=== PATIENT | female | born 1930 | race Caucasian/White ===

== ENCOUNTER 2016-11-13 08:52 | Emergency (ER) | payer OTHER, MEDICARE ==
[~2016-11-13] VITALS: Ht 167.6 cm; Wt 70.0 kg
[~2016-11-13 08:52] MED LIST: AMOXICILLIN500 MG PO; ATENOLOL100 MG PO; AUGMENTIN875TAB PO; BABY ASPIRIN81 MG PO; D31000 UNIT PO; DOXYCYCL HYC100 MG PO; EQL GARLIC OD1000 MG PO; FENOFIBRATE160 MG PO; FLUARIX QUADRIV1 INJ IM; FLUZONE SPLT1 M1 IM; HYDROCHLORO25 MG/TAB PO; LEVOTHYROXIN50 MC1 PO; LISINOPRIL10 MG PO; LOPID600 MG PO; LOSARTAN POT50 MG PO; PREDNISONE20 MG PO; PROAIR HFA IN; ROCEPHIN 1 GM1 GM IM; SOLU-MEDROL125 MG IM; VITAMIN D2000 UNI1 PO; ZITHROMAX250 MG PO; [UNRECOGNIZED DRUG - OTHER] OR
[2016-11-13] MEDS ORDERED: EC-NAPROSYN500 MG PO (09:53)
[2016-11-13 10:05] VITALS: BP 129/71
== END 2016-11-13 10:09 | disposition home or self-care (01) | DRG 563 ==
LOC: ED 08:52
DX: S63.602A Unspecified sprain of left thumb, initial encounter (principal); I10 Essential (primary) hypertension; S20.212A Contusion of left front wall of thorax, initial encounter; E03.9 Hypothyroidism, unspecified; V49.50XA Passenger injured in collision with unspecified motor vehicles in traffic accident, initial encounter; Z86.711 Personal history of pulmonary embolism; Z85.72 Personal history of non-Hodgkin lymphomas

== ENCOUNTER 2017-05-20 20:13 | Emergency (ER) | payer MEDICARE, OTHER ==
[~2017-05-20] VITALS: Ht 167.6 cm; Wt 65.0 kg
[~2017-05-20 20:13] MED LIST changes: +EC-NAPROSYN500 MG PO
[2017-05-20 22:19] VITALS: BP 148/60
== END 2017-05-20 22:24 | disposition home or self-care (01) ==
LOC: ED 20:13
DX: H95.42 Postprocedural hemorrhage of ear and mastoid process following other procedure (principal); Z79.01 Long term (current) use of anticoagulants

== ENCOUNTER 2018-02-23 17:19 | Emergency (ER) | payer MEDICARE, OTHER ==
[~2018-02-23] VITALS: Ht 167.6 cm; Wt 59.1 kg
[2018-02-23 20:29] LABS: URINE BILIRUBIN - DIPSTICK NEGATIVE (NEGATIVE); URINE BLOOD DIPSTICK NEGATIVE (NEGATIVE); URINE COLOR YELLOW; URINE GLUCOSE - DIPSTICK NEGATIVE (NEGATIVE); URINE KETONE TRACE mg/dL (NEGATIVE); URINE LEUK ESTERASE NEGATIVE (Negative); URINE NITRITE - DIPSTICK NEGATIVE (Negative); URINE PH 5.5 (4.5-8.0); URINE PROTEIN - DIPSTICK NEGATIVE (NEG-TRACE); URINE SPECIFIC GRAVITY 1.025; URINE UROBILINOGEN - DIPSTICK 0.2 E.U./dL (0.2)
[2018-02-23 20:30] LABS: URINE CLARITY CLEAR
[2018-02-23 20:56] VITALS: BP 130/70
== END 2018-02-23 20:56 | disposition home or self-care (01) ==
LOC: ED 17:19
PROVIDERS: Emergency Medicine
DX: J06.9 Acute upper respiratory infection, unspecified (principal); I10 Essential (primary) hypertension; Z92.21 Personal history of antineoplastic chemotherapy; Z85.9 Personal history of malignant neoplasm, unspecified

== ENCOUNTER 2018-03-29 15:26 | Inpatient (IN) | payer MEDICARE, OTHER ==
[~2018-03-29] VITALS: Ht 165.1 cm; Wt 58.0 kg
[2018-03-29 16:30] LABS: HEMATOCRIT 42.1 % (37.0-47.0); HEMOGLOBIN 13.2 g/dl (12.0-16.0); IMMATURE GRANULOCYTES 0.9 % (0.0-5.0); MEAN CELL VOLUME 84.5 fL CALC (80.0-100.0); MEAN CORPUSCULAR HGB 26.5 pG CALC (26.0-32.0); MEAN CORPUSCULAR HGB CONC 31.4 g/L CALC (32.0-36.0); NEUT# 5.82 thou/uL (2.00-7.15); RED BLOOD COUNT 4.98 mill/uL (4.20-5.60); RED CELL DISTRI WIDTH 14.7 % (11.5-15.5)
[2018-03-29 16:51] LABS: ANION GAP 18 (6-22 (CALC)); BUN 27 mg/dL (8-23); BUN/CREATININE RATIO 24 (12-20 (CALC)); CARBON DIOXIDE 23 mmol/l (22-30); CHLORIDE 101 mmol/l (95-108); CREATININE 1.2 mg/dL (0.5-1.0); GFR 42 ML/MIN (>=60 (CALC)); GFR FOR AFR.AMER. 51 ML/MIN (>=60 (CALC)); POTASSIUM 4.3 mmol/l (3.5-5.1); SODIUM 138 mmol/l (137-146)
[2018-03-29] MEDS ORDERED: WARFARIN2 MG PO (17:11)
[2018-03-29] MEDS ORDERED: LOSARTAN POTASS25 MG PO (17:11)
[2018-03-29] MEDS ORDERED: LOPID600 MG PO (17:12)
[2018-03-29] MEDS ORDERED: LEVOTHYROXIN50 MCG PO (17:12)
[2018-03-29] MEDS ORDERED: ASPIRIN 8181 MG PO (17:13)
[2018-03-29 17:55] LABS: URINE BILIRUBIN - DIPSTICK NEGATIVE (NEGATIVE); URINE BLOOD DIPSTICK NEGATIVE (NEGATIVE); URINE COLOR YELLOW; URINE GLUCOSE - DIPSTICK NEGATIVE (NEGATIVE); URINE KETONE NEGATIVE (NEGATIVE); URINE LEUK ESTERASE NEGATIVE (NEGATIVE); URINE NITRITE - DIPSTICK NEGATIVE (Negative); URINE PH 6.5 (4.5-8.0); URINE PROTEIN - DIPSTICK NEGATIVE (NEG-TRACE); URINE UROBILINOGEN - DIPSTICK 0.2 E.U./dL (0.2)
[2018-03-29 18:42] VITALS: BP 118/70
[2018-03-29 19:20] VITALS: BP 118/70
[2018-03-30 00:22] VITALS: BP 103/60
[2018-03-30 03:54] VITALS: BP 119/67
[2018-03-30 06:26] LABS: HEMATOCRIT 37.3 % (37.0-47.0); HEMOGLOBIN 11.5 g/dl (12.0-16.0); IMMATURE GRANULOCYTES 1.2 % (0.0-5.0); MEAN CELL VOLUME 86.3 fL CALC (80.0-100.0); MEAN CORPUSCULAR HGB 26.6 pG CALC (26.0-32.0); MEAN CORPUSCULAR HGB CONC 30.8 g/L CALC (32.0-36.0); NEUT# 2.94 thou/uL (2.00-7.15); RED BLOOD COUNT 4.32 mill/uL (4.20-5.60); RED CELL DISTRI WIDTH 14.8 % (11.5-15.5)
[2018-03-30 06:42] LABS: ALBUMIN 3.4 g/dL (3.2-5.0); ALKALINE PHOSPHATASE 123 u/l (38-126); AMYLASE 55 u/l (30-110); ANION GAP 15 (6-22 (CALC)); BILIRUBIN, TOTAL 0.4 mg/dL (0.0-1.4); BUN 22 mg/dL (8-23); BUN/CREATININE RATIO 22 (12-20 (CALC)); CARBON DIOXIDE 20 mmol/l (22-30); CHLORIDE 110 mmol/l (95-108); GFR 52 ML/MIN (>=60 (CALC)); GFR FOR AFR.AMER. > 60 ML/MIN (>=60 (CALC)); LIPASE 191 u/l (23-300); MAGNESIUM 1.4 mg/dL (1.6-2.3); SGOT/AST 22 u/l (9-36); SODIUM 141 mmol/l (137-146); TOTAL PROTEIN 5.5 g/dL (6.3-8.2)
[2018-03-30 08:00] VITALS: BP 159/59
[2018-03-30 08:06] LABS: INTERNATIONAL NORMALIZED RATIO 3.2 RATIO (0.7-1.3); PROTHROMBIN TIME 33.2 SECONDS (9.0-12.5)
[2018-03-30 11:59] VITALS: BP 133/53
[2018-03-30 15:59] VITALS: BP 130/51
[2018-03-30 19:47] VITALS: BP 152/67
[2018-03-31] VITALS: BP 123/63
[2018-03-31 03:53] VITALS: BP 137/61
[2018-03-31 06:08] LABS: HEMOGLOBIN 10.8 g/dl (12.0-16.0); IMMATURE GRANULOCYTES 1.2 % (0.0-5.0); MEAN CELL VOLUME 85.4 fL CALC (80.0-100.0); MEAN CORPUSCULAR HGB 26.3 pG CALC (26.0-32.0); MEAN CORPUSCULAR HGB CONC 30.9 g/L CALC (32.0-36.0); NEUT# 3.93 thou/uL (2.00-7.15); RED BLOOD COUNT 4.1 mill/uL (4.20-5.60); RED CELL DISTRI WIDTH 14.8 % (11.5-15.5)
[2018-03-31 06:32] LABS: ALBUMIN 3.2 g/dL (3.2-5.0); ALKALINE PHOSPHATASE 100 u/l (38-126); AMYLASE < 30 u/l (30-110); ANION GAP 14 (6-22 (CALC)); BILIRUBIN, TOTAL 0.3 mg/dL (0.0-1.4); BUN 15 mg/dL (8-23); BUN/CREATININE RATIO 19 (12-20 (CALC)); CARBON DIOXIDE 19 mmol/l (22-30); CHLORIDE 112 mmol/l (95-108); CREATININE 0.8 mg/dL (0.5-1.0); GFR > 60 ML/MIN (>=60 (CALC)); GFR FOR AFR.AMER. > 60 ML/MIN (>=60 (CALC)); LIPASE 78 u/l (23-300); MAGNESIUM 2.7 mg/dL (1.6-2.3); POTASSIUM 4.2 mmol/l (3.5-5.1); SGOT/AST 24 u/l (9-36); SODIUM 142 mmol/l (137-146); TOTAL PROTEIN 5.3 g/dL (6.3-8.2)
[2018-03-31 06:48] LABS: INTERNATIONAL NORMALIZED RATIO 1.7 RATIO (0.7-1.3); PROTHROMBIN TIME 18.2 SECONDS (9.0-12.5)
[2018-03-31 09:18] VITALS: BP 131/54
[2018-03-31 11:20] VITALS: BP 134/60
[2018-03-31 15:55] VITALS: BP 149/77
[2018-03-31 19:05] VITALS: BP 154/77
[2018-04-01 00:02] VITALS: BP 148/80
[2018-04-01 04:00] VITALS: BP 146/80
[2018-04-01 05:31] LABS: HEMATOCRIT 36.6 % (37.0-47.0); HEMOGLOBIN 11.5 g/dl (12.0-16.0); MEAN CELL VOLUME 85.3 fL CALC (80.0-100.0); MEAN CORPUSCULAR HGB 26.8 pG CALC (26.0-32.0); MEAN CORPUSCULAR HGB CONC 31.4 g/L CALC (32.0-36.0); NEUT# 4.12 thou/uL (2.00-7.15); RED BLOOD COUNT 4.29 mill/uL (4.20-5.60); RED CELL DISTRI WIDTH 14.9 % (11.5-15.5)
[2018-04-01 05:44] LABS: ALBUMIN 3.4 g/dL (3.2-5.0); ALKALINE PHOSPHATASE 113 u/l (38-126); ANION GAP 14 (6-22 (CALC)); BILIRUBIN, TOTAL 0.3 mg/dL (0.0-1.4); BUN 14 mg/dL (8-23); BUN/CREATININE RATIO 16 (12-20 (CALC)); CARBON DIOXIDE 21 mmol/l (22-30); CHLORIDE 110 mmol/l (95-108); CREATININE 0.8 mg/dL (0.5-1.0); GFR > 60 ML/MIN (>=60 (CALC)); GFR FOR AFR.AMER. > 60 ML/MIN (>=60 (CALC)); POTASSIUM 3.9 mmol/l (3.5-5.1); SGOT/AST 24 u/l (9-36); SODIUM 141 mmol/l (137-146); TOTAL PROTEIN 5.4 g/dL (6.3-8.2)
[2018-04-01 05:45] LABS: MAGNESIUM 1.8 mg/dL (1.6-2.3)
[2018-04-01 08:42] VITALS: BP 158/69
[2018-04-01 11:50] VITALS: BP 147/68
[2018-04-01 15:14] VITALS: BP 154/68
[2018-04-01 19:12] VITALS: BP 147/75
[2018-04-02 00:01] VITALS: BP 141/79
[2018-04-02 04:09] VITALS: BP 141/81
[2018-04-02 05:41] LABS: HEMATOCRIT 39.7 % (37.0-47.0); HEMOGLOBIN 12.3 g/dl (12.0-16.0); IMMATURE GRANULOCYTES 3.4 % (0.0-5.0); MEAN CELL VOLUME 84.5 fL CALC (80.0-100.0); MEAN CORPUSCULAR HGB 26.2 pG CALC (26.0-32.0); NEUT# 3.95 thou/uL (2.00-7.15); RED BLOOD COUNT 4.7 mill/uL (4.20-5.60); RED CELL DISTRI WIDTH 14.7 % (11.5-15.5)
[2018-04-02 06:02] LABS: ALBUMIN 3.6 g/dL (3.2-5.0); ALKALINE PHOSPHATASE 99 u/l (38-126); ANION GAP 16 (6-22 (CALC)); BILIRUBIN, TOTAL 0.4 mg/dL (0.0-1.4); CARBON DIOXIDE 23 mmol/l (22-30); CHLORIDE 106 mmol/l (95-108); CREATININE 0.9 mg/dL (0.5-1.0); GFR 59 ML/MIN (>=60 (CALC)); GFR FOR AFR.AMER. > 60 ML/MIN (>=60 (CALC)); MAGNESIUM 1.5 mg/dL (1.6-2.3); POTASSIUM 3.9 mmol/l (3.5-5.1); SODIUM 141 mmol/l (137-146); TOTAL PROTEIN 5.7 g/dL (6.3-8.2)
[2018-04-02 06:03] LABS: SGOT/AST 24 u/l (9-36)
[2018-04-02 06:07] LABS: BUN 15 mg/dL (8-23); BUN/CREATININE RATIO 17 (12-20 (CALC))
[2018-04-02 08:17] VITALS: BP 147/68
[2018-04-02 09:44] LABS: PROTHROMBIN TIME 12.9 SECONDS (9.0-12.5)
[2018-04-02 10:00] LABS: INTERNATIONAL NORMALIZED RATIO 1.2 RATIO (0.7-1.3)
[2018-04-02 11:14] VITALS: BP 128/71
[2018-04-02 16:46] VITALS: BP 139/74
[2018-04-02 20:00] VITALS: BP 152/78
[2018-04-03] VITALS: BP 132/79
[2018-04-03 05:44] VITALS: BP 166/74
[2018-04-03 06:24] VITALS: BP 139/65
[2018-04-03 07:52] VITALS: BP 165/77
[2018-04-03 09:52] LABS: INTERNATIONAL NORMALIZED RATIO 1.3 RATIO (0.7-1.3); PROTHROMBIN TIME 13.2 SECONDS (9.0-12.5)
[2018-04-03 11:58] VITALS: BP 174/83
[2018-04-03] MEDS ORDERED: DOXYCYCL HYC100 MG PO (13:15)
[2018-04-03] MEDS ORDERED: LOSARTAN POT50 MG PO (13:16)
== END 2018-04-03 13:39 | disposition home or self-care (01) | DRG 195 ==
LOC: ED 15:26 → ED-I 17:23 → ED 17:37 → MS2 17:38
PROVIDERS: Family Medicine; Nurse Practitioner Family; ADMIT Internal Medicine Nephrology; ATTEND Internal Medicine Nephrology
PROC: 3E0234Z Introduction of Serum, Toxoid and Vaccine into Muscle, Percutaneous Approach (ICD-10-PCS; principal; 2018-03-30)
DX: J18.9 Pneumonia, unspecified organism (principal); I12.9 Hypertensive chronic kidney disease with stage 1 through stage 4 chronic kidney disease, or unspecified chronic kidney disease; N18.3 Chronic kidney disease, stage 3 (moderate); E03.9 Hypothyroidism, unspecified; R79.1 Abnormal coagulation profile; T45.515A Adverse effect of anticoagulants, initial encounter; Z23 Encounter for immunization; Z79.01 Long term (current) use of anticoagulants; Z86.711 Personal history of pulmonary embolism; Z85.72 Personal history of non-Hodgkin lymphomas; Z92.21 Personal history of antineoplastic chemotherapy
CPT/HCPCS: G0378

== ENCOUNTER → 2018-04-11 | Outpatient (REF) | payer MEDICARE, OTHER ==
[~2018-04-11] MED LIST changes: +ASPIRIN 8181 MG PO; +LEVOTHYROXIN50 MCG PO; +LOSARTAN POTASS25 MG PO; +WARFARIN2 MG PO
== END | disposition home or self-care (01) ==
LOC: DI 12:44
PROVIDERS: ATTEND Nurse Practitioner Family
DX: J18.9 Pneumonia, unspecified organism (principal); R05 Cough; J47.9 Bronchiectasis, uncomplicated

== ENCOUNTER → 2018-05-01 | Outpatient (REF) | payer MEDICARE, OTHER ==
[2018-05-01 15:48] LABS: HEMOGLOBIN 12.8 g/dl (12.0-16.0); IMMATURE GRANULOCYTES 0.5 % (0.0-5.0); MEAN CELL VOLUME 83.2 fL CALC (80.0-100.0); MEAN CORPUSCULAR HGB CONC 31.2 g/L CALC (32.0-36.0); NEUT# 11.58 thou/uL (2.00-7.15); RED BLOOD COUNT 4.93 mill/uL (4.20-5.60); RED CELL DISTRI WIDTH 16.7 % (11.5-15.5)
== END | disposition home or self-care (01) ==
LOC: LAB 15:25
PROVIDERS: ATTEND Internal Medicine Hematology
DX: C91.10 Chronic lymphocytic leukemia of B-cell type not having achieved remission (principal)

== ENCOUNTER → 2018-05-08 | Outpatient (REF) | payer MEDICARE, OTHER ==
[2018-05-08 17:27] LABS: HEMATOCRIT 44.7 % (37.0-47.0); HEMOGLOBIN 13.9 g/dl (12.0-16.0); IMMATURE GRANULOCYTES 0.6 % (0.0-5.0); MEAN CELL VOLUME 82.9 fL CALC (80.0-100.0); MEAN CORPUSCULAR HGB 25.8 pG CALC (26.0-32.0); MEAN CORPUSCULAR HGB CONC 31.1 g/L CALC (32.0-36.0); NEUT# 12.92 thou/uL (2.00-7.15); RED BLOOD COUNT 5.39 mill/uL (4.20-5.60); RED CELL DISTRI WIDTH 17.1 % (11.5-15.5)
== END | disposition home or self-care (01) ==
LOC: LAB 15:34
PROVIDERS: ATTEND Internal Medicine Hematology
DX: C91.10 Chronic lymphocytic leukemia of B-cell type not having achieved remission (principal); Z85.038 Personal history of other malignant neoplasm of large intestine; R59.9 Enlarged lymph nodes, unspecified; D70.1 Agranulocytosis secondary to cancer chemotherapy; R50.9 Fever, unspecified; I26.99 Other pulmonary embolism without acute cor pulmonale

== ENCOUNTER → 2018-05-14 | Outpatient (REF) | payer MEDICARE, OTHER | END | disposition home or self-care (01) | LOC: DI 15:46 | PROVIDERS: ATTEND Internal Medicine Pulmonary Disease | DX: J42 Unspecified chronic bronchitis (principal) ==

== ENCOUNTER → 2018-05-15 | Outpatient (REF) | payer MEDICARE, OTHER ==
[2018-05-15 17:32] LABS: HEMATOCRIT 44.8 % (37.0-47.0); HEMOGLOBIN 13.7 g/dl (12.0-16.0); IMMATURE GRANULOCYTES 0.6 % (0.0-5.0); MEAN CELL VOLUME 82.7 fL CALC (80.0-100.0); MEAN CORPUSCULAR HGB 25.3 pG CALC (26.0-32.0); MEAN CORPUSCULAR HGB CONC 30.6 g/L CALC (32.0-36.0); NEUT# 13.68 thou/uL (2.00-7.15); RED BLOOD COUNT 5.42 mill/uL (4.20-5.60); RED CELL DISTRI WIDTH 17.3 % (11.5-15.5)
[2018-05-15 17:56] LABS: ALBUMIN 4.1 g/dL (3.2-5.0); BILIRUBIN, TOTAL 0.6 mg/dL (0.0-1.4); CREATININE 1.2 mg/dL (0.5-1.0); POTASSIUM 4.5 mmol/l (3.5-5.1); TOTAL PROTEIN 6.5 g/dL (6.3-8.2)
== END | disposition home or self-care (01) ==
LOC: LAB 15:31
PROVIDERS: ATTEND Internal Medicine Hematology
DX: C91.10 Chronic lymphocytic leukemia of B-cell type not having achieved remission (principal); Z85.038 Personal history of other malignant neoplasm of large intestine; R59.9 Enlarged lymph nodes, unspecified; D70.1 Agranulocytosis secondary to cancer chemotherapy; R50.9 Fever, unspecified; I26.99 Other pulmonary embolism without acute cor pulmonale; E87.5 Hyperkalemia

== ENCOUNTER 2019-05-29 15:39 | Inpatient (IN) | payer MEDICARE, OTHER ==
[~2019-05-29] VITALS: Ht 165.1 cm; Wt 56.0 kg
[~2019-05-29 15:39] MED LIST changes: +BUDESONID2 IN; +MINOCIN100 MG PO; +VITAMIN B121000 MCG PO
--- NOTE | 2019-05-29 15:39 | NUR ---
PT TO ROOM VIA WC IN NO ACUTE DISTRESS
--- NOTE | 2019-05-29 16:20 | NUR ---
ALL LABS DRAWN, SWABS COLLECTED AND PT UPDATED ON POC AND WAIT TIME.PT IN NO DISTRESS
[2019-05-29] MEDS ORDERED: GARLIC1000 MG PO (16:50)
[2019-05-29] MEDS ORDERED: MULTI VIT PO (16:51)
--- NOTE | 2019-05-29 17:01 | NUR ---
PT RESTING NO ACUTE DITRESSNOTED, IV ACCESS OBTAINED AND LABS DRAWN, PT RESTING ,CALL JOVEL WITHIN REACH.
--- NOTE | 2019-05-29 17:08 | NUR ---
LACTIC ACID DRAWN WITHOUT INCIDENT ORDERED, PT TOLERATED WELL.
[2019-05-29 17:21] LABS: HEMATOCRIT 43.3 % (37.0-47.0); HEMOGLOBIN 13.7 g/dl (12.0-16.0); IMMATURE GRANULOCYTES 0.5 % (0.0-5.0); MEAN CELL VOLUME 89.8 fL CALC (80.0-100.0); MEAN CORPUSCULAR HGB 28.4 pG CALC (26.0-32.0); MEAN CORPUSCULAR HGB CONC 31.6 g/dL CAL (32.0-36.0); NEUT# 12.02 thou/uL (2.00-7.15); RED BLOOD COUNT 4.82 mill/uL (4.20-5.60); RED CELL DISTRI WIDTH 14.1 % (11.5-15.5); URINE BILIRUBIN - DIPSTICK NEGATIVE (NEGATIVE); URINE BLOOD DIPSTICK LARGE (NEGATIVE); URINE COLOR YELLOW; URINE GLUCOSE - DIPSTICK NEGATIVE (NEGATIVE); URINE KETONE NEGATIVE (NEGATIVE); URINE LEUK ESTERASE TRACE (NEGATIVE); URINE NITRITE - DIPSTICK NEGATIVE (Negative); URINE PROTEIN - DIPSTICK 100 mg/dL (NEG-TRACE); URINE SPECIFIC GRAVITY 1.025; URINE UROBILINOGEN - DIPSTICK 0.2 E.U./dL (0.2)
[2019-05-29 17:35] LABS: URINE RBC 25-50 RBC/hpf (0-5); URINE SQUAMOUS EPITHELIAL CELL FEW EPI/hpf (0-FEW)
[2019-05-29 17:36] LABS: ALBUMIN 4.3 g/dL (3.2-5.0); ALKALINE PHOSPHATASE 219 u/l (38-126); ANION GAP 16 (6-22 (CALC)); BILIRUBIN, TOTAL 0.7 mg/dL (0.0-1.4); BUN 24 mg/dL (8-23); BUN/CREATININE RATIO 23 (12-20 (CALC)); CARBON DIOXIDE 25 mmol/l (22-30); CHLORIDE 99 mmol/l (95-108); GFR 52 ML/MIN (>=60 (CALC)); GFR FOR AFR.AMER. > 60 ML/MIN (>=60 (CALC)); INTERNATIONAL NORMALIZED RATIO 3.9 RATIO (0.7-1.3); POTASSIUM 4.4 mmol/l (3.5-5.1); PROTHROMBIN TIME 38.4 SECONDS (9.0-12.5); SGOT/AST 28 u/l (9-36); SODIUM 136 mmol/l (137-146)
--- NOTE | 2019-05-29 17:46 | NUR ---
MEDICATED FOR FEVER ORDERED, CALL BECKA BECK, RT AT BEDSIDE ATTEMPTINGABG DRAW, WILL CONTINUETOMONITOR,.
--- NOTE | 2019-05-29 17:56 | NUR ---
ABG RESULTS PROVIDED TO
[2019-05-29 17:57] LABS: MYOGLOBIN 63 ng/mL (0 - 62)
--- NOTE | 2019-05-29 18:43 | NUR ---
REPORT CALLED TO XANDER FRANKLIN. PT AWARE OF PLANNED ADMISSION
[2019-05-29 19:25] VITALS: BP 121/52
--- NOTE | 2019-05-29 19:25 | NUR ---
PT TRANSPORTED TO MED SURG STABLE AND IN NO DISTRESS TO MED SURG VIA STRETCHER. CARE ASSUMED TO XANDER Admission Note Report Given to: Transported by: Wheelchair X Stretcher Transported with: X Nurse Transporter X Patent IV O2 X Enterprise Integration Developer Location: ICU X MS2
--- NOTE | 2019-05-29 19:25 | NUR ---
PT ARRIVED TO FLOOR VIA STRETCHER ACCOMPAINED BY ER STAFF. PT ALERT AND ORIENTED. PT AMBULATED FROM STRETCHER TO BED WITH STEADY GAIT. IV SITE NOTED TO LAC APPEARS HEALTHY. SKIN INTACT. AREA COORDINATOR IN PLACE. DISCUSSED POC AND ISOLATION PRECAUTIONS. PT VERBALIZED UNDERSTANDING. PT ORIENTED TO ROOM AND CALL LIGHT SYSTEM. PT DENIES ANY PAIN OR DISCOMFORT. CALL LIGHT WITHIN REACH. WILL CONTINUE TO MONITOR.
--- NOTE | 2019-05-29 23:28 | NUR ---
PT RESTING IN BED. NO APPARENT DISTRESS NOTED. PT DENIES ANY PAIN OR DISCOMFORT. CALL LIGHT WITHIN REACH. WILL CONTINUE TO MONITOR.
[2019-05-30] VITALS (7 sets, daily range): BP systolic 112–167; BP diastolic 50–74
--- NOTE | 2019-05-30 03:22 | NUR ---
PT CALLED ROCK PICKER REPORTING CHILLS. TEMT NOTED 101.6. PT MEDICATED WITH PO APAP. ASSISTED PT TO BATHROOM. PT VOIDED WITHOUT DIFFICULTY. UPON GETTING BACK INTO BED PT IV SITE BECAME DISLODGED CATH INTACT. NEW IV START X1 ATTEMPT, PT TOLERATED WELL. LINENS CHANGED AT THIS TIME. CALL LIGHT WITHIN REACH. WILL CONTINUE TO MONITOR.
[2019-05-30 06:40] LABS: ANION GAP 10 (6-22 (CALC)); BUN 19 mg/dL (8-23); BUN/CREATININE RATIO 22 (12-20 (CALC)); CARBON DIOXIDE 24 mmol/l (22-30); CHLORIDE 105 mmol/l (95-108); CREATININE 0.9 mg/dL (0.5-1.0); GFR 59 ML/MIN (>=60 (CALC)); GFR FOR AFR.AMER. > 60 ML/MIN (>=60 (CALC)); POTASSIUM 3.7 mmol/l (3.5-5.1); SODIUM 136 mmol/l (137-146)
--- NOTE | 2019-05-30 08:10 | NUR ---
REPORT RECEIVED FROM RIGOBERTO TERRELL. PT SITTING UP IN BED; ALERT AND ORIENTED. DENIES PAIN. RESPIRATIONS EVEN AND UNLABORED ON ROOM AIR. AMBULATED TO BATHROOM INDEPENDENTLY WITH SUPERVISION. TELE ON. IV FLUIDS INFUSING WITHOUT DIFFICULTY; IV SITE APPEARS HEALTHY. PLAN OF CARE REVIEWED. PT ENCOURAGED TO VERBALIZE CONCERNS. STATES UNDERSTANDING. SAFETY MEASURES IN PLACE. CALL LIGHT WITHIN REACH.
[2019-05-30 08:13] LABS: INTERNATIONAL NORMALIZED RATIO 2.6 RATIO (0.7-1.3); PROTHROMBIN TIME 26.4 SECONDS (9.0-12.5)
[2019-05-30 08:18] LABS: HEMATOCRIT 36.4 % (37.0-47.0); HEMOGLOBIN 11.6 g/dl (12.0-16.0); IMMATURE GRANULOCYTES 0.6 % (0.0-5.0); MEAN CELL VOLUME 89.2 fL CALC (80.0-100.0); MEAN CORPUSCULAR HGB 28.4 pG CALC (26.0-32.0); MEAN CORPUSCULAR HGB CONC 31.9 g/dL CAL (32.0-36.0); NEUT# 8.29 thou/uL (2.00-7.15); RED BLOOD COUNT 4.08 mill/uL (4.20-5.60)
--- NOTE | 2019-05-30 10:40 | NUR ---
INSENTIVE SPIROMETER PROVIDED AND EDUCATED ON; DEMONSTRATED USE OVER 1000.
--- NOTE | 2019-05-30 11:54 | NUR ---
DR. LUCIA AT BEDSIDE.
--- NOTE | 2019-05-30 12:45 | NUR ---
PT IS RELAXING IN BED WITH NO DISTRESS NOTED. IV SITE IS FREE FROM REDNESS TELE MONITOR IN PLACE.
--- NOTE | 2019-05-30 13:10 | NUR ---
TYLENOL GIVEN FOR C/O MILD HEADACHE AND LEFT SIDE ACHE. SITTING UP WATCHING TV; ALERT AND ORIENTED.
--- NOTE | 2019-05-30 15:43 | NUR ---
PT HAS BEEN RESTING WITH EYES CLOSED.
--- NOTE | 2019-05-30 16:45 | NUR ---
PT IS SITTING IN BED WATCHING TV NO DISTRESS NOTED. IV SITE IS FREE FROM REDNESS OR EDEMA.
--- NOTE | 2019-05-30 19:05 | NUR ---
REPORT FROM TERI FRANKLIN. PT SITTING UP IN BED WATCHING TV. NO APPARENT DISTRESS NOTED. PT DENIES ANY PAIN OR DISCOMFORT. IV SITE APPEARS HEALTHY WITH IVF INFUSING. SENIOR DATA MINING ANALYST IN PLACE. DISCUSSED POC. PT VERBALIZED UNDERSTANDING. CALL LIGHT WITHIN REACH. WILL CONTINUE TO MONITOR.
--- NOTE | 2019-05-30 20:56 | NUR ---
PT CALLED INPATIENT SERVICES DIRECTOR TO ROOM C/O LLQ PAIN. PT REQUESTING APAP AT THIS TIME. ADMINISTERED UPON REQUEST. ACTIVE BOWEL SOUNDS NOTED. PT PASSING GAS AND BELCHING WITNESSED BY INPATIENT SERVICES DIRECTOR IN ROOM. ASSISTED PT TO BATHROOM TO VOID. CLEAR YELLOW URINED NOTED. PT DENIES ANY OTHER PAIN OR DISCOMFORT. AFEBRILE AT THIS TIME. ASSISTED BACK TO BED. OTHER SCHEDULED MEDICAITONS ADMINISTERED AT THIS TIME. PT DENIES ANY OTHER WANTS OR NEEDS. CALL LIGHT WITHIN REACH. WILL CONTINUE TO MONITOR.
--- NOTE | 2019-05-31 00:04 | NUR ---
PT RESTING IN BED WITH EYES CLOSED. NO APPARENT DISTRESS NOTED. IVF INFUSING WITHOUT DIFFICULTY. CALL LIGHT WITHIN REACH. WILL CONTINUE TO MONITOR.
--- NOTE | 2019-05-31 04:00 | NUR ---
PT RESTING IN BED. WAKES EASILY. DENIES ANY PAIN OR DISCOMFORT. CALL LIGHT WITHIN REACH. WILL CONTINUE TO MONITOR.
[2019-05-31 04:40] VITALS: BP 115/68
--- NOTE | 2019-05-31 06:23 | NUR ---
VEST BUSHELER IN ROOM TO ADMINISTER MORNING MEDICATIONS. PT STATES SHE IS STILL HAVING CP. WHEN VEST BUSHELER QUESTIONED WHEN CP STARTED PT STATES 3 DAYS AGO. PT STATES CP COMES AND GO AND SHE DIDN'T SAY ANYTHING EARLIER ABOUT IT BECAUSE SHE WAS HOPING IT WOULD JUST GO AWAY, PT ALSO STATES SHE HAD BEEN TAKING APAP AT HOME FOR IT PRIOR TO ADMISSION. PT EDUCATED ON INFORMING AND REPORTING TO NURSE WHEN PAIN ARRISES. PT VERBALIZED UNDERSTANDING. STAT EKG ORDERED AT THIS TIME.
[2019-05-31 07:45] VITALS: BP 117/64
--- NOTE | 2019-05-31 07:45 | NUR ---
REPORT RECEIVED FROM RIGOBERTO TERRELL. PT RESTING IN BED ON RIGHT SIDE; AWAKENS SPONTANEOUSLY AND IN NO DISTRESS. REMAINS ON ISOLATION PRECAUTIONS PENDING COVID TEST RESULTS. DENIES PAIN CHEST PAIN AT THIS TIME. RESPIRATIONS EVEN AND UNLABORED ON ROOM AIR. SAFETY MEASURES IN PLACE. CALL LIGHT WITHIN REACH.
--- NOTE | 2019-05-31 07:49 | NUR ---
PT DENIES CHEST PAIN AT TIME STATING THAT IT WENT AWAY. STATES, "IF I LAY ON MY SIDE IT WILL PROBABLY COME BACK, HOLD ON ILL CHECK." [place] GIVEN WITH AM MEDS. VSS. TEMP 99.7. LABS OBTAINED AND SENT.
[2019-05-31 08:16] LABS: HEMOGLOBIN 13.5 g/dl (12.0-16.0); IMMATURE GRANULOCYTES 0.9 % (0.0-5.0); MEAN CELL VOLUME 88.9 fL CALC (80.0-100.0); MEAN CORPUSCULAR HGB 28.2 pG CALC (26.0-32.0); MEAN CORPUSCULAR HGB CONC 31.7 g/dL CAL (32.0-36.0); NEUT# 6.34 thou/uL (2.00-7.15); RED BLOOD COUNT 4.79 mill/uL (4.20-5.60)
[2019-05-31 08:33] LABS: INTERNATIONAL NORMALIZED RATIO 1.9 RATIO (0.7-1.3); PROTHROMBIN TIME 19.1 SECONDS (9.0-12.5)
[2019-05-31 08:34] LABS: ALBUMIN 3.6 g/dL (3.2-5.0); ALKALINE PHOSPHATASE 137 u/l (38-126); ANION GAP 15 (6-22 (CALC)); BILIRUBIN, TOTAL 0.5 mg/dL (0.0-1.4); BUN 14 mg/dL (8-23); BUN/CREATININE RATIO 15 (12-20 (CALC)); CARBON DIOXIDE 22 mmol/l (22-30); CHLORIDE 103 mmol/l (95-108); CREATININE 0.9 mg/dL (0.5-1.0); GFR 59 ML/MIN (>=60 (CALC)); GFR FOR AFR.AMER. > 60 ML/MIN (>=60 (CALC)); POTASSIUM 3.9 mmol/l (3.5-5.1); SGOT/AST 41 u/l (9-36); SODIUM 136 mmol/l (137-146)
[2019-05-31 08:42] LABS: HEMATOCRIT 42.6 % (37.0-47.0)
--- NOTE | 2019-05-31 08:57 | NUR ---
TROPONIN RESULT 1.670; CALLED TO DR. KASPER AND UPDATED ON CLINICAL CONDITION. NEW ORDER TO DRAW ANOTHER TROPONIN IN 4 HOURS. TYLENOL GIVEN FOR LEFT SIDE PAIN. WILL CONTINUE TO CLOSELY MONITOR.
--- NOTE | 2019-05-31 10:01 | NUR ---
COVID TEST RESULTS ARE NEGATIVE.
--- NOTE | 2019-05-31 10:40 | NUR ---
PT SITTING UP IN BEDSIDE CHAIR; PLEASANT AND SMILING. C/O MILD MIDSTERNAL CP; STATES, "IT'S OK ITS NOT THAT BAD." HEART RATE ELEVATED; ST 108 ON TELEMETRY.
[2019-05-31 11:14] VITALS: BP 106/59
--- NOTE | 2019-05-31 11:45 | NUR ---
TROPONIN COLLECTED AND SENT TO LAB.
--- NOTE | 2019-05-31 12:31 | NUR ---
TROPONIN RESULT 1.500; DR. KASPER ON UNIT AND NOTIFIED.
--- NOTE | 2019-05-31 14:02 | NUR ---
DR. KASPER AT BEDSIDE.
--- NOTE | 2019-05-31 14:32 | NUR ---
PT TRANSPORTED FROM ROOM 290 TO 270 VIA BED; NOW ON STANDARD PRECAUTIONS.
--- NOTE | 2019-05-31 15:13 | NUR ---
TYLENOL GIVEN FOR 8/10 LEFT SIDE PAIN.
[2019-05-31 15:15] VITALS: BP 111/71
--- NOTE | 2019-05-31 17:14 | NUR ---
PT AMBULATING AROUND BED; NO COMPLAINTS AT THIS TIME; SMILING AND PLESANT; TYLENOL EFFECTIVE FOR LEFT SIDE PAIN; DENIES PAIN AT THIS TIME. COUMADIN RESTARTED AND ADMINISTERED. SAFETY MEASURES IN PLACE. CALL LIGHT WITHIN REACH.
--- NOTE | 2019-05-31 19:05 | NUR ---
REPORT FROM PRINCE ABURTO. PT SITTING UP IN BED. ALERT AND ORIENTED. PT DENIES ANY PAIN OR DISCOMFORT AT THIS TIME. NO APPARENT DISTRESS NOTED. IV SITE APPEARS HEALTHY WITH IVF INFUSING. AUTOMOTIVE MACHINIST APPRENTICE IN PLACE. DISCUSSED POC. PT VERBALIZED UNDERSTANDING. CALL LIGHT WITHIN REACH. WILL CONTINUE TO MONITOR.
[2019-05-31 19:10] VITALS: BP 100/63
--- NOTE | 2019-05-31 23:38 | NUR ---
PT RESTING IN BED WITH EYES CLOSED. NO APPARENT DISTRESS NOTED. CALL LIGHT WITHIN REACH. WILL CONTINUE TO MONITOR.
[2019-06-01] VITALS (8 sets, daily range): BP systolic 101–122; BP diastolic 55–76
--- NOTE | 2019-06-01 03:32 | NUR ---
PT RESTING IN BED WITH EYES CLOSED. NO APPARENT DISTRESS NOTED. CALL LIGHT WITHIN REACH. WILL CONTINUE TO MONITOR.
[2019-06-01 05:07] LABS: HEMATOCRIT 40.4 % (37.0-47.0); HEMOGLOBIN 12.6 g/dl (12.0-16.0); MEAN CELL VOLUME 90.4 fL CALC (80.0-100.0); MEAN CORPUSCULAR HGB 28.2 pG CALC (26.0-32.0); MEAN CORPUSCULAR HGB CONC 31.2 g/dL CAL (32.0-36.0); RED BLOOD COUNT 4.47 mill/uL (4.20-5.60); RED CELL DISTRI WIDTH 14.2 % (11.5-15.5)
[2019-06-01 05:09] LABS: ALKALINE PHOSPHATASE 100 u/l (38-126); ANION GAP 12 (6-22 (CALC)); BILIRUBIN, TOTAL 0.3 mg/dL (0.0-1.4); BUN 15 mg/dL (8-23); BUN/CREATININE RATIO 15 (12-20 (CALC)); CARBON DIOXIDE 21 mmol/l (22-30); CHLORIDE 106 mmol/l (95-108); GFR 52 ML/MIN (>=60 (CALC)); GFR FOR AFR.AMER. > 60 ML/MIN (>=60 (CALC)); POTASSIUM 3.2 mmol/l (3.5-5.1); SGOT/AST 40 u/l (9-36); SODIUM 136 mmol/l (137-146); TOTAL PROTEIN 5.2 g/dL (6.3-8.2)
[2019-06-01 05:10] LABS: INTERNATIONAL NORMALIZED RATIO 1.9 RATIO (0.7-1.3); PROTHROMBIN TIME 19.4 SECONDS (9.0-12.5)
--- NOTE | 2019-06-01 07:51 | NUR ---
ENTERPRISE BUSINESS ARCHITECT NOTIFIED NURSE OF RHYTHM CHANGE INCLUDING FREQUENT PVCS AND TRIGEMINY. RT AT BEDSIDE FOR EKG.
--- NOTE | 2019-06-01 08:58 | NUR ---
TROPONIN DRAWN WITH RESULT OF 0.767; SAL TAVAREZ ON UNIT AND NOTIFIED.
--- NOTE | 2019-06-01 09:00 | NUR ---
PT SEEN AWAKE, ALERT, ORIENTED X 3. LUNGS CLEAR, RA. PT WITH MUSCULAR PAIN TO MIDBACK BILATERALLY, WORSE TO LEFT, HELPED WITH MASSAGE. PT DENIES SHORTNESS OF BREATH OR CHEST PAIN. EKG DONE EARLIER, TROPONIN DRAWN, TRENDING DOWNWARD, FREDEIRC AWARE.
--- NOTE | 2019-06-01 13:13 | NUR ---
PT REMAINS BEFORE, NO DISTRESS, NO COMPLAINTS.
[2019-06-01 19:01] LABS: MAGNESIUM 2.5 mg/dL (1.6-2.3); POTASSIUM 3.9 mmol/l (3.5-5.1)
--- NOTE | 2019-06-01 19:18 | NUR ---
REPORT FROM GREG ABURTO. PT SITTING UP IN BED. ALERT AND ORIENTED. PT DENIES ANY PAIN OR DISCOMFORT AT THIS TIME. NO APPARENT DISTRESS NOTED. IV SITE APPEARS HEALTHY WITH IVF INFUSING. TOE SEWER IN PLACE. DISCUSSED POC. PT VERBALIZED UNDERSTANDING. CALL LIGHT WITHIN REACH. WILL CONTINUE TO MONITOR.
--- NOTE | 2019-06-01 23:16 | NUR ---
PT SITTING UP IN BED. NO APPARENT DISTRESS NOTED. PT REQUESTING TYLENOL, PT DENIES ANY PAIN AND REMAINS AFEBRILE. EDUCATION PROVIDED AND DISCUSSED USE OF TYLENOL. ENCOURAGED PT TO REPORT PAIN AND PT WOULD BE MEDICATED AT THAT TIME. PT VERBALIZED CONCERNS ABOUT STAFF NOT BEING AVAILABLE THROUGHOUT NIGHT, INDUSTRIAL SEWER REASSURED AND EDUCATED PT THAT STAFF WOULD BE AVAILABLE AT ANY TIME THROUGHOUT NIGHT FOR WANTS AND NEEDS THIS IS A 24 HOUR FACILITY. PT VERBALIZED UNDERSTANDING. FRESH ICE WATER PROVIDED. CALL LIGHT WITHIN REACH. WILL CONTINUE TO MONITOR.
--- NOTE | 2019-06-02 03:06 | NUR ---
PT RESTING IN BED WITH EYES CLOSED. NO APPARENT DISTRESS NOTED. RESPIRATIONS EVEN AND UNLABORED. CALL LIGHT WITHIN REACH. WILL CONTINUE TO MONITOR.
[2019-06-02 04:41] VITALS: BP 108/66
--- NOTE | 2019-06-02 07:10 | NUR ---
REPORT RECEIVED FROM RIGOBERTO TERRELL;PT RESTING IN SEMI FOWLERS POSITION;INTRODUCED SELF TO PT AND POC DISCUSSED;RESPIRATIONS EVEN AND UNLABORED ON RA;PT DENIES ANY CURRENT PAIN OR NEEDS;TELE MONITORING IN PLACE;IV FLUIDS INFUSING WITH EASE PER ORDER;PT DENIES ANY ADDITIONAL NEEDS AT THIS TIME AND IS NECOURAGED TO CALL FOR ASSISTANCE IF NEEDED;FALL PRECAUTIONS IN PLACE WITH BED IN THE LOWEST POSITION AND CALL LIGHT IN REACH;WILL CONTINUE TO MONITOR
[2019-06-02 07:38] VITALS: BP 121/76
--- NOTE | 2019-06-02 08:40 | NUR ---
PT RESTING IN SEMI FOWLERS POSITION,A&O X3 WITH FORGETFULNESS NOTED;PT DENIES ANY CURRENT PAIN OR DISCOMFORTS,PAIN SCALE AND REPORTING EDUCATED;RESPIRATIONS EVEN AND UNLABORED ON RA;ABDOMEN SOFT ON PALPATION AND ACTIVE IN ALL 4 QUADRANTS;WEAK PEDAL PULSES;SKIN INTACT;TELE MONITORING IN PLACE;#22G TO LFA INFUSING NS PER ORDER WITH EASE;PT DENIES ANY ADDITIONAL NEEDS AT THIS TIME AND IS ENCOURAGED TO CALL FOR ASSISTANCE IF NEEDED;CALL LIGHT IN REACH;WILL CONTINUE TO MONITOR
--- NOTE | 2019-06-02 10:04 | NUR ---
AT BEDSIDE DISCUSSIG POC.
[2019-06-02] MEDS ORDERED: LOPRESSOR 550 MG/TAB PO (10:11)
[2019-06-02] MEDS ORDERED: Levaquin PO (10:12)
[2019-06-02 10:35] VITALS: BP 103/64
--- NOTE | 2019-06-02 11:50 | NUR ---
PT RESTING IN SEMI FOWLERS POSITION;PT REQUESTS PRN TYLENOL 650MG PO BUT DENIES ANY PAIN AND DOES NOT HAVE A FEVER,PT REPORTS "I TAKE IT BEFORE I HAVE PAIN";RESPIRATIONS EVEN AND UNLABORED ON RA;IV SITE REMOVED WITH CATHETER INTACT AND TELE MONITORING D/C;ALL D/S INFORMATION PROVIDED AT THIS TIME,PT INSTRUCTED TO TAKE ABX AND METOPROLOL DIRECTED, MONITOR BP AND HR;PT DENIES ANY ADDITIONAL QUESTIONS OR NEEDS;WHEELCHAIR TO BE PROVIDED FOR D/C HOME;SPOUSE TO TRANSPORT PT HOME.WILL CONTINUE TO MONITOR
--- NOTE | 2019-06-02 12:54 | NUR ---
Discharge instructions given. Patient verbalizes understanding of same. Discharged in stable condition via Wheelchair to Home with spouse. All belongings sent with pt. PT TRANSPORTED TO [facility] IN STABLE CONDITION VIA WHEELCHAIR ACCOMPANIED BY STACY MITCHELL FOR D/C HOME,PT TO BE TRANSPORT HOME BY SPOUSE.
== END 2019-06-02 12:54 | disposition home or self-care (01) | DRG 194 ==
LOC: ED 15:39 → MS2 18:09 → ED-I 18:09 → MS2 18:12
PROVIDERS: Emergency Medicine; Internal Medicine; Nurse Practitioner Family; ADMIT Internal Medicine; ATTEND Internal Medicine
DX: J18.9 Pneumonia, unspecified organism (principal); N39.0 Urinary tract infection, site not specified; I24.8 Other forms of acute ischemic heart disease; I12.9 Hypertensive chronic kidney disease with stage 1 through stage 4 chronic kidney disease, or unspecified chronic kidney disease; N18.3 Chronic kidney disease, stage 3 (moderate); E03.9 Hypothyroidism, unspecified; R00.0 Tachycardia, unspecified; I49.3 Ventricular premature depolarization; B96.5 Pseudomonas (aeruginosa) (mallei) (pseudomallei) as the cause of diseases classified elsewhere; Z86.711 Personal history of pulmonary embolism; Z79.01 Long term (current) use of anticoagulants; Z86.718 Personal history of other venous thrombosis and embolism; Z20.828 Contact with and (suspected) exposure to other viral communicable diseases
CPT/HCPCS: G0378; J3475

== ENCOUNTER 2020-02-12 11:52 | Inpatient (IN) | payer MEDICARE, OTHER ==
[~2020-02-12] VITALS: Ht 167.6 cm; Wt 47.3 kg
[~2020-02-12 11:52] MED LIST changes: +GARLIC1000 MG PO; +LOPRESSOR 550 MG/TAB PO; +Levaquin PO; +MULTI VIT PO
--- NOTE | 2020-02-12 12:00 | NUR ---
PATIENT TO ROOM FOR TRIAGE. SPOUSE PRESENT.
[2020-02-12 13:00] LABS: HEMATOCRIT 37.6 % (37.0-47.0); IMMATURE GRANULOCYTES 0.8 % (0.0-5.0); MEAN CELL VOLUME 92.2 fL CALC (80.0-100.0); MEAN CORPUSCULAR HGB 29.4 pG CALC (26.0-32.0); MEAN CORPUSCULAR HGB CONC 31.9 g/dL CAL (32.0-36.0); NEUT# 16.21 thou/uL (2.00-7.15); RED BLOOD COUNT 4.08 mill/uL (4.20-5.60); RED CELL DISTRI WIDTH 14.6 % (11.5-15.5)
--- NOTE | 2020-02-12 13:10 | NUR ---
PT IN RADIOLOGY FOR PLACEMENT OF PICC LINE.
[2020-02-12 13:18] LABS: ACT PARTIAL THROMBO TIME 33.4 SECONDS (20.0-32.5)
[2020-02-12 13:22] LABS: INTERNATIONAL NORMALIZED RATIO 2.2 RATIO (0.7-1.3); PROTHROMBIN TIME 20.8 SECONDS (9.0-12.5)
[2020-02-12 13:25] LABS: ALKALINE PHOSPHATASE 129 u/l (38-126); ANION GAP 10 (6-22 (CALC)); BUN 18 mg/dL (8-23); BUN/CREATININE RATIO 20 (12-20 (CALC)); CARBON DIOXIDE 22 mmol/l (22-30); CHLORIDE 103 mmol/l (95-108); CREATININE 0.9 mg/dL (0.5-1.0); GFR 59 ML/MIN (>=60 (CALC)); GFR FOR AFR.AMER. > 60 ML/MIN (>=60 (CALC)); LIPASE 40 u/l (23-300); POTASSIUM 3.8 mmol/l (3.5-5.1); SGOT/AST 32 u/l (9-36); SODIUM 131 mmol/l (137-146); TOTAL PROTEIN 4.8 g/dL (6.3-8.2)
[2020-02-12 13:30] LABS: ALBUMIN 2.6 g/dL (3.2-5.0)
--- NOTE | 2020-02-12 14:15 | NUR ---
IV MEDS INFUSING WITHOUT DIFFICULTY. STABLE ON MONITOR. AT BEDSIDE. CALL LIGHT WITHIN REACH.
--- NOTE | 2020-02-12 15:06 | NUR ---
IV MEDS CONTINUE TO INFUSE WITHOUT DIFFICULTY. STABLE ON MONITOR.
--- NOTE | 2020-02-12 16:45 | NUR ---
PT RESTING. IV MEDS COMPLETED. REMAINS AT BEDSIDE. NO DISTRESS NOTED OR CONCERNS VOICED.
--- NOTE | 2020-02-12 18:23 | NUR ---
PT CONSUMED DINNER. REMAINS STABLE. CALL LIGHT WITHIN REACH. REPOSITIONED IN BED. GONE FOR THE NIGHT. WILL RETURN TO DROP OFF CELL PHONE.
--- NOTE | 2020-02-12 19:52 | NUR ---
PLAN OF CARE UPDATED WITH PT. PT DENIES COMPLAINTS. RESPS EVEN, UNLABBORED.
--- NOTE | 2020-02-12 21:19 | NUR ---
REPORT CALLED TO ARNEL ON FLOOR. PT'S RESPS EVEN, UNLABBORED. NAD NOTED
[2020-02-12 21:20] VITALS: BP 114/66
--- NOTE | 2020-02-12 21:20 | NUR ---
PATIENT ARRIED TO UNIT VIA W/C WITH STAFF, PATIENT ALERT AND ORIENTED, NO C/O PAIN OR DISTRESS NOTED. PATIENT HAS NON-PRODUCTIVE COUGH, ON TELE, 02 2LITERS VIA NASAL CANNULA. PATIENT ORIENTED TO ROOM, CALL LIGHT/TV/LIGHS, BED IN LOWEST POSITION. WILL CONTINUE TO MONITOR.
[2020-02-13 04:47] VITALS: BP 107/65
[2020-02-13 06:12] LABS: HEMATOCRIT 32.1 % (37.0-47.0); HEMOGLOBIN 10.2 g/dl (12.0-16.0); MEAN CELL VOLUME 93.6 fL CALC (80.0-100.0); MEAN CORPUSCULAR HGB 29.7 pG CALC (26.0-32.0); MEAN CORPUSCULAR HGB CONC 31.8 g/dL CAL (32.0-36.0); RED BLOOD COUNT 3.43 mill/uL (4.20-5.60); RED CELL DISTRI WIDTH 14.6 % (11.5-15.5)
[2020-02-13 06:26] LABS: BUN 18 mg/dL (8-23); BUN/CREATININE RATIO 22 (12-20 (CALC)); CALCULATED LDLCHOLESTEROL 31 mg/dL (62-129 (CALC)); CHLORIDE 102 mmol/l (95-108); CHOLESTEROL HDL RATIO 3.2 (<4.4 (CALC)); CREATININE 0.8 mg/dL (0.5-1.0); GFR > 60 ML/MIN (>=60 (CALC)); GFR FOR AFR.AMER. > 60 ML/MIN (>=60 (CALC)); HDL CHOLESTEROL 23 mg/dL (>=40); POTASSIUM 3.9 mmol/l (3.5-5.1); SODIUM 131 mmol/l (137-146); TOTAL TRIGLYCERIDES 95 mg/dl (30-149); VLDL CHOLESTROL 19 mg/dl (0-48 (CALC))
[2020-02-13 06:31] LABS: ANION GAP 6 (6-22 (CALC)); CARBON DIOXIDE 27 mmol/l (22-30); MAGNESIUM 1.3 mg/dL (1.6-2.3); TOTAL CHOLESTEROL 73 mg/dl (0-199)
[2020-02-13 08:15] LABS: URINE BILIRUBIN - DIPSTICK NEGATIVE (NEGATIVE); URINE BLOOD DIPSTICK NEGATIVE (NEGATIVE); URINE COLOR YELLOW; URINE GLUCOSE - DIPSTICK NEGATIVE (NEGATIVE); URINE KETONE NEGATIVE (NEGATIVE); URINE LEUK ESTERASE NEGATIVE (NEGATIVE); URINE NITRITE - DIPSTICK NEGATIVE (Negative); URINE PROTEIN - DIPSTICK NEGATIVE (NEG-TRACE); URINE UROBILINOGEN - DIPSTICK 0.2 E.U./dL (0.2)
--- NOTE | 2020-02-13 09:24 | NUR ---
DR. LUCIA IN TO SEE PT; PLAN OF CARE DISCUSSED
[2020-02-13 09:30] VITALS: BP 114/75
--- NOTE | 2020-02-13 09:30 | NUR ---
PT IN HIGH STARKS POSITION; A/O X4; DENIES PAIN OR DISCOMFORT; TELE MONITOR IN PLACE; HUGO MIDLINE IN PLACE, NO REDNESS OR EDEMA NOTED, FLUSHES WELL; #[address], NO REDNESS OR EDEMA NOTED; ENCOURAGE USE OF CALL LIGHT IF ANY ASSISTANCE IS NEEDED; WILL CONTINUE TO MONITOR.
--- NOTE | 2020-02-13 11:56 | NUR ---
PT RESTING WITH EYES CLOSED; NO S/SX OF DISTRESS NOTED; CALL JOVEL WITHIN REACH; WILL CONTINUE TO MONITOR.
[2020-02-13 15:05] LABS: INTERNATIONAL NORMALIZED RATIO 2.2 RATIO (0.7-1.3); PROTHROMBIN TIME 21.1 SECONDS (9.0-12.5)
[2020-02-13 15:09] VITALS: BP 123/74
--- NOTE | 2020-02-13 17:09 | NUR ---
PT AMBULATORY IN ROOM; STATES SHE IS LOOKING FOR [place]; INFORMED PT IT IS NOT IN BELONGINGS BAG; WILL CALL SPOUSE TO SEE IF HE TOOK IT HOME; PT DENIES PAIN OR DISCOMFORT; CALL JOVEL WITHIN REACH; WILL CONTINUE TO MONITOR.
--- NOTE | 2020-02-13 19:16 | NUR ---
ATTEMPTED TO CALL SPOUSE TO BRING IN PT HOME MED; LEFT MESSAGE ON VOICE MAIL
[2020-02-13 19:20] VITALS: BP 130/76
--- NOTE | 2020-02-13 21:00 | NUR ---
PT IN BED WITH EYES OPEN AND RESTLESSNESS NOTED. REDIRECTION GIVEN SEVERAL TIMES TO PREVENT FALLS AND INCREASE SAFETY AWARENESS. BED ALARM ON DUE TO POOR SAFETY AWARENESS AND FALL PREVENTION. pT IS ABLE TO MAKE SOME NEEDS KNOWN. fLUIDS GIVEN AND TOLERATED WELL. cALL LIGHT WITHIN REACH. WILL CONTINUE TO OBSERVE
[2020-02-14 00:10] VITALS: BP 108/56
[2020-02-14 03:45] VITALS: BP 106/73
[2020-02-14 05:11] LABS: HEMATOCRIT 32.3 % (37.0-47.0); HEMOGLOBIN 10.3 g/dl (12.0-16.0); IMMATURE GRANULOCYTES 0.9 % (0.0-5.0); MEAN CELL VOLUME 93.6 fL CALC (80.0-100.0); MEAN CORPUSCULAR HGB 29.9 pG CALC (26.0-32.0); MEAN CORPUSCULAR HGB CONC 31.9 g/dL CAL (32.0-36.0); NEUT# 10.53 thou/uL (2.00-7.15); RED BLOOD COUNT 3.45 mill/uL (4.20-5.60); RED CELL DISTRI WIDTH 14.6 % (11.5-15.5)
[2020-02-14 05:20] LABS: ALKALINE PHOSPHATASE 92 u/l (38-126); ANION GAP 7 (6-22 (CALC)); BUN 17 mg/dL (8-23); BUN/CREATININE RATIO 21 (12-20 (CALC)); CARBON DIOXIDE 26 mmol/l (22-30); CHLORIDE 104 mmol/l (95-108); CREATININE 0.8 mg/dL (0.5-1.0); GFR > 60 ML/MIN (>=60 (CALC)); GFR FOR AFR.AMER. > 60 ML/MIN (>=60 (CALC)); MAGNESIUM 1.4 mg/dL (1.6-2.3); POTASSIUM 3.9 mmol/l (3.5-5.1); SGOT/AST 32 u/l (9-36); SODIUM 132 mmol/l (137-146)
[2020-02-14 05:21] LABS: ALBUMIN 1.9 g/dL (3.2-5.0); BILIRUBIN, TOTAL 0.5 mg/dL (0.0-1.4); INTERNATIONAL NORMALIZED RATIO 2.1 RATIO (0.7-1.3); TOTAL PROTEIN 3.7 g/dL (6.3-8.2)
--- NOTE | 2020-02-14 05:36 | NUR ---
PT IN BED WITH EYES CLOSED. NO S/S OF DISRESS NOTED, CONTINENT OF B/B AND ASSIST TO TOILET WITH 1 PERSON ASSIST. PT HAS CONFUSION NOTED AND BED ALARM ON FOR SAFETY. PICC LINE FLUSHING WITH NO COMPLICATIONS AND DRESSING INTACT. wILL CONTINUE TO OBSERVE
[2020-02-14 07:45] VITALS: BP 110/72
--- NOTE | 2020-02-14 07:45 | NUR ---
PATIENT LAYING IN BED AT THIS TIME ALERT AND ORIENTED. PATIENT DENIES ANY NEEDS LUNG SOUNGS ARE COURSED UPPER LUNG ESPARZA AND DIMISHIS IN LOWER LUNG ESPARZA. RIGHT UPPER ARM PICC SINGLE LUMEN PATENT AND FLUSHING AND BLOOD RETURNS WITHOUT INCIDENT. SIDERAILS UP CALL LIGHT WITHIN REACH. DENIES ANY PAIN AND HAS A LOOSE NON PRODUCTIVE COUGH. WILL CONTINUE TO MONITOR.
[2020-02-14 10:35] VITALS: BP 99/61
--- NOTE | 2020-02-14 12:00 | NUR ---
WALK TEST PREFORMED AT THIS TIME. AT REST SPO2 WAS 93%, O2 REMOVED FOR 5 MINUTES AND WALKED AND SPO2 DROPPED TO 88% O2 REPLACED AND SPO2 WENT UP TO 93% AND AT REST 02 WAS AT 98% WITH [address] ALTAMIRANO NOTIFIED OF FINDING AT THIS TIME. PATIENT DENIES ALL OTHER NEEDS. FAMILY DID COME TO HOSPITAL AND PICKED UP PATIENTS PHONE AT THIS TIME.
[2020-02-14 14:55] VITALS: BP 119/70
--- NOTE | 2020-02-14 16:00 | NUR ---
PATIENT RESTING IN BED AT THIS TIME CALL LIGHT WITHIN REACH SIDE RAIL UP X 2 PICC LINE PATENT AND FLUSHING WITHOUT ANY RESISTANCE. PATIENT STATES SHE HAS NO PAIN AND DOES HAVE DRY NON PRODUCTIVE COUGH AT THIS TIME.
[2020-02-14 19:35] VITALS: BP 103/66
--- NOTE | 2020-02-14 19:42 | NUR ---
Received report from nurse and pt in bed with eyes open and able to make needs known. No respiratory distress noted. Call light is within reach. Will continue to observe.
--- NOTE | 2020-02-14 21:32 | NUR ---
PT IN BED WITH EYES CLOSED. NO S/S OF DISTRESS NOTED. MEDS GIVEN AND TOLERATED WELL. PT HAS NON BLANCHABLE REDNESS TO COCCYX AREA AND COMPLAINS OF PAIN TO TOUCH. PHOTO WAS TAKEN OF AREA AND DRESSING APPLIED. EDUCATED PT TO TURN AND REPOSITION TO PREVENT FURTHUR SKIN BREAKDOWN.
[2020-02-15 00:05] VITALS: BP 115/68
[2020-02-15 03:45] VITALS: BP 118/47
[2020-02-15 07:20] VITALS: BP 122/60
--- NOTE | 2020-02-15 07:20 | NUR ---
PATIENT RESTING IN BED AT THIS TIME 02 ON AT 2 LITERS. PATIENT DENIES ANY PAIN AND STATES HER LEVEL OF PAIN IS 0 OUT OF A PAIN SCALE OF 0-10. PATIENT REMAINS TO HAVE COURSE UPPER FEILD LUNG SOUNDS AND DIMINISHED IN LOWER LUNG ESPARZA. PATIENT STATES SHE SLEPT WELL LAST NIGHT AND FEELS BETTER. PATIENT DOES EXHIBIT A NON PRODUCTIVE COUGH INTERMITTINGLY. ALL SAFETY MEASURES ARE IN PLACE CALL LIGHT WITHIN REACH.
[2020-02-15 09:43] LABS: INTERNATIONAL NORMALIZED RATIO 2.4 RATIO (0.7-1.3); PROTHROMBIN TIME 22.6 SECONDS (9.0-12.5)
[2020-02-15 11:29] VITALS: BP 90/52
[2020-02-15] MEDS ORDERED: ZITHROMAX250 MG PO (11:45)
--- NOTE | 2020-02-15 11:55 | NUR ---
PATIENT UP IN CHAIR AT THIS TIME. PATIENT DENIES ANY NEEDS AT THIS TIME. PATIENT STATES NO PAIN. DR. ALTAMIRANO IN TO SEE PATIENT AND PATIENT WAS INFORMED OF DISCHARGE.
--- NOTE | 2020-02-15 13:15 | NUR ---
PATIENT D/C AT THIS TIME. HUGO PICC LINE REMOVED AT THIS TIME UNDER ASCEPTIC TECHINQUE. PICC LINE PULLED AND TIP INTACT AND MEASURED LENGHT WAS 37.5 CM. PICC LINE SITE CLEANED AT THIS TIME AND BIO-PATCH APPLIED AND TEAGADERM COVERING APPLIED AND INSTRUCTIONS GIVEN TO PATIENT TO REMOVE DRESSING ON 02/16/20. PATIENT VERBALIZED UNDERSTANDING OF D/C INSTRUCTIONS AND PICC LINE DRESSING INSTRUCTIONS.
--- NOTE | 2020-02-15 14:16 | NUR ---
Discharge instructions given. Patient verbalizes understanding of same. Discharged in stable condition via Wheelchair to Home with spouse. All belongings sent with pt.
== END 2020-02-15 14:09 | disposition home or self-care (01) | DRG 194 ==
LOC: ED 11:52 → ED-I 15:17 → ED 15:20 → MS2 15:21
PROVIDERS: Internal Medicine; Nurse Practitioner; Nurse Practitioner Family; ADMIT Internal Medicine; ATTEND Internal Medicine
DX: J18.9 Pneumonia, unspecified organism (principal); C91.10 Chronic lymphocytic leukemia of B-cell type not having achieved remission; E83.42 Hypomagnesemia; I10 Essential (primary) hypertension; E03.9 Hypothyroidism, unspecified; Z20.828 Contact with and (suspected) exposure to other viral communicable diseases; Z79.01 Long term (current) use of anticoagulants; Z79.899 Other long term (current) drug therapy; Z86.711 Personal history of pulmonary embolism
CPT/HCPCS: G0378; Q9967